=== PATIENT | male | born 1990 | race Two or more races ===

== ENCOUNTER 2024-06-17 13:18 | Emergency (ER) | payer OTHER ==
[~2024-06-17] VITALS: Ht 157.5 cm; Wt 68.2 kg
[2024-06-17 14:07] VITALS: TEMP 98
[2024-06-17] MEDS: FLUORESCEIN SODIUM 1 MG STRIP OD ONE (14:27)
[2024-06-17] MEDS: FLUORESCEIN SODIUM 1 MG STRIP OS ONE (14:54)
[2024-06-17] MEDS: ACETAMINOPHEN 500 MG TABLET PO ONE (14:55)
[2024-06-17] MEDS: BACITRACIN/POLYMYXIN B 3.5 GM OPHTHALMIC OINTMENT OD ONE (14:56)
[2024-06-17] MEDS: PROPARACAINE HCL 0.5% 15 ML OPHTHALMIC SOLUTION OD ONE (15:05)
[2024-06-17 15:08] VITALS: BP 123/72; PULSE 67; RESP 16; O2SAT 100
== END 2024-06-17 15:13 ==
LOC: EMS 13:18
DX: S05.02XA Injury of conjunctiva and corneal abrasion without foreign body, left eye, initial encounter (principal); X58.XXXA Exposure to other specified factors, initial encounter; Y93.89 Activity, other specified; Y92.89 Other specified places as the place of occurrence of the external cause; Y99.8 Other external cause status
CPT/HCPCS: 99283